=== PATIENT | male | born 1930 | race Caucasian/White ===

== ENCOUNTER 2018-02-07 12:53 | Emergency (ER) | payer OTHER, BC ==
[~2018-02-07] VITALS: Ht 185.4 cm; Wt 97.7 kg
[~2018-02-07 12:53] MED LIST: ADULT LOW DOSE81 M1 PO; AMLODIPINE BESYL5 MG PO; ASPIR-LOW81 MG PO; ASPIRIN EC325 MG PO; CIPROFLOXACIN250 MG PO; DAYPRO600 MG PO; FISH OIL 1,001000 MG PO; GLIPIZIDE5 MG PO; GLUCOTROL5 MG PO; INSTAFLEX; LANSOPRAZOLE30 MG PO; LIPITOR40 MG PO; LISINOPRIL40 MG PO; MYSOLINE50 MG PO; NIFEDIPINE ER90 MG PO; NORVASC5 MG PO; PRAVACHOL20 MG PO; PRAVASTATIN SOD40 MG PO; PREVACID30 MG PO; PRIMIDONE50 MG PO; PULMICORT FLEX90 MCG IH; TAMSULOSIN HCL0.4 MG PO; TOPROL XL50 MG PO; VITAMIN D1000 UNIT PO
[2018-02-07 13:06] LABS: BASOPHIL (%) 0.5 % (0-1); BASOPHIL COUNT 0.1 K/uL (0-0.1); EOSINOPHIL (%) 5.1 % (0-5); EOSINOPHIL COUNT 0.5 K/uL (0-0.3); HEMATOCRIT 40.3 % (38.0-50.0); HEMOGLOBIN 13.6 G/DL (12.5-16.6); IMMATURE GRANULOCYTE (%) 0.8 % (0.0-0.7); LYMPHOCYTE (%) 16.8 % (15-42); LYMPHOCYTE COUNT 1.6 K/uL (1.0-2.8); MCH 30.5 PG (29.0-34.0); MCHC 33.7 G/DL (30.0-36.0); MCV 90.4 FL (86-99); MONOCYTE (%) 10.3 % (3-12); NEUTROPHIL (%) 66.5 % (45-76); NEUTROPHIL COUNT 6.5 K/uL (1.8-6.4); PLATELET COUNT 238 K/uL (156-360); RBC DIS.WIDTH-CV 13.2 % (11.8-14.6); RBC DIS.WIDTH-SD 43.6 % (39-53); RED BLOOD COUNT 4.46 M/uL (4.00-5.50); WHITE BLOOD COUNT 9.8 K/uL (4.1-10.2)
[2018-02-07 13:11] LABS: INTER. NORMALIZED RATIO 1.1
[2018-02-07 13:14] LABS: PTT 36.1 SEC (25-37)
[2018-02-07 13:15] LABS: CHLORIDE 107 mEq/L (99-109); POTASSIUM 4.3 mEq/L (3.7-5.4); SODIUM 141 mEq/L (136-147)
[2018-02-07 13:17] LABS: GLUCOSE 183 mg/dL (70-99)
[2018-02-07 13:21] LABS: CREATININE 1.2 mg/dL (0.6-1.3); GFR ESTIMATE (CALCULATED) > 59 mL/min/ (58.99-99999)
[2018-02-07 13:22] LABS: UREA NITROGEN (BUN) 22 mg/dL (9-23)
[2018-02-07 13:29] LABS: TROP-I INTERPRETATION NEGATIVE; TROPONIN-I < 0.01 ng/mL (0.0-0.30)
[2018-02-07 14:13] LABS: HDL CHOLESTEROL 42 MG/DL (Desirable>=40); LDL CHOLESTEROL 100 mg/dL (Desirable<100); NON-HDL CHOLESTEROL 121 mg/dL (Desirable<160); TOTAL CHOLESTEROL 163 mg/dL (Desirable<200); TRIGLYCERIDES 105 MG/DL (Normal: <150)
[2018-02-07 14:54] LABS: HEMOGLOBIN A1c (GLYCOHEMOGLOB) 7.4 % (Below 5.7)
[2018-02-07 17:31] VITALS: BP 179/76
== END 2018-02-07 17:53 | disposition short-term general hospital (02) ==
LOC: EME → EDBD 12:53 → EME 17:53
PROVIDERS: Emergency Medicine
DX: I63.9 Cerebral infarction, unspecified (principal); I65.23 Occlusion and stenosis of bilateral carotid arteries; I65.02 Occlusion and stenosis of left vertebral artery; R29.810 Facial weakness; I69.320 Aphasia following cerebral infarction; R29.720 NIHSS score 20; I48.91 Unspecified atrial fibrillation; I10 Essential (primary) hypertension; E11.9 Type 2 diabetes mellitus without complications; Z95.5 Presence of coronary angioplasty implant and graft; Z79.82 Long term (current) use of aspirin; Z79.84 Long term (current) use of oral hypoglycemic drugs; Z88.2 Allergy status to sulfonamides; Z87.891 Personal history of nicotine dependence
CPT/HCPCS: 70450; 70496; 70498; 80048; 80061; 81003; 83036; 84484; 85025; 85610; 85730; 93005; 99281; 99285; J2060; J2997